=== PATIENT | female | born 1990 | race Caucasian/White ===

== ENCOUNTER 2017-04-01 03:42 | Emergency (ER) | payer BC ==
[~2017-04-01] VITALS: Ht 157.5 cm; Wt 70.3 kg
[~2017-04-01 03:42] MED LIST changes: -AVIANE PO; -BACTRIM DS TAB1 EACH PO; -HYDROCODON-ACE1 EAC5 PO; -LISINOPRIL PO
[2017-04-01 04:24] LABS: URINE SOURCE CLEAN CATCH
[2017-04-01 04:33] LABS: BASOPHIL% 0.3 % (0-2.5); EOSINOPHIL# 0.3 X10e3 (0-0.7); EOSINOPHIL% 1.9 % (0.0-7.0); HEMATOCRIT 39.1 % (35.0-45.0); HEMOGLOBIN 13.5 gm/dL (12.0-16.0); LYMPHOCYTE# 4.8 X10e3 (1.0-3.5); LYMPHOCYTE% 35.1 % (17.0-45.0); MEAN CELL VOLUME 80.8 FL (83-96); MEAN CORPUSCULAR HGB CONC 34.6 g/dL (30-36); MONOCYTE# 0.9 X10e3 (0-1.0); MONOCYTE% 6.7 % (3.0-12.0); NEUTROPHIL# 7.6 X10e3 (1.5-7.1); PLATELET COUNT 274 X10e3 (140-420); RED BLOOD COUNT 4.84 X10e (3.90-5.30); RED CELL DISTRIBUTION WIDTH 13.7 % (11.0-15.5); WHITE BLOOD COUNT 13.6 X10e3 (4.0-10.5)
[2017-04-01 04:34] LABS: DIFF IND NO
[2017-04-01 04:36] LABS: URINE APPEARANCE CLEAR; URINE BILIRUBIN NEG (NEG); URINE BLOOD NEG (NEG); URINE COLOR YELLOW; URINE GLUCOSE NEG (NEG); URINE KETONE NEG (NEG); URINE LEUKOCYTE ESTERASE 1+ (NEG); URINE NITRATE NEG (NEG); URINE PH 5.5 (5-8); URINE PROTEIN NEG (NEG); URINE SPECIFIC GRAVITY 1.018 (1.003-1.035)
[2017-04-01 04:38] LABS: CULTURE INDICATED? YES; URINE BACTERIA AUWI 2+ (NEGATIVE); URINE SQUAMOUS EPITHELIAL CELL OCC /[HPF]
[2017-04-01 05:01] LABS: BILIRUBIN, DIRECT 0.1 mg/dL (0.0-0.2); BILIRUBIN,INDIRECT 0.3 mg/dL (0.0-0.9); BILIRUBIN,TOTAL 0.4 mg/dL (0.2-2.0); BUN/CREATININE RATIO 21.11; CALCIUM SERUM 8.9 mg/dL (8.4-10.2); CREATININE SERUM 0.9 mg/dL (0.6-1.4); GLOM FILT RATE Estimated 87.1 mL/min (>60); POTASSIUM 3.9 mmol/L (3.5-5.1); PROTEIN TOTAL SERUM 7.4 g/dL (6.0-8.3)
[2017-04-01] MEDS ORDERED: BACTRIM DS TAB1 EACH PO (06:47)
[2017-04-02] MEDS ORDERED: LISINOPRIL PO (09:32)
[2017-04-02] MEDS ORDERED: AVIANE PO (12:19)
== END 2017-04-01 06:47 | disposition home or self-care (01) ==
LOC: CED 03:42
PROVIDERS: Nurse Practitioner
DX: K80.50 Calculus of bile duct without cholangitis or cholecystitis without obstruction (principal); N39.0 Urinary tract infection, site not specified; I10 Essential (primary) hypertension; Z79.899 Other long term (current) drug therapy
CPT/HCPCS: 36415; 80048; 80076; 81003; 82150; 83690; 84703; 85025; 87086; 96361; 96374; 96375; 99284; J1885; J2270; J2405

== ENCOUNTER → 2017-04-01 | Outpatient (CLI) | payer BC ==
[~2017-04-01] MED LIST: ALESSE-281 TAB PO; ALL DAY ALLERGY10 M3 PO; AMOXICILLIN875 MG PO; ANAPROX DS550 M1 PO; AVIANE PO; BACTRIM DS TAB1 EACH PO; BACTRIM DS TABL1 TA1 PO; BCP PO; BENADRYL PO; BIRTH CONTROL PILL PO; FLEXERIL10 M1 PO; HYDROCODON-ACE1 EAC5 PO; IBUPROFEN800 MG PO; LISINOPRIL PO; LISINOPRIL10 MG PO; NO MEDICATIONS; ORUDIS75 M1 DOB; PHENERGAN VC W120 M1 PO; TOPAMAX25 MG PO; VICODIN 5/1 TAB 5/50 PO; VOLTAREN50 MG PO; ZOFRAN PO
--- NOTE | ~2017-04-01 | NM22 ---
[facility] A Service of [facility] RADIOLOGY TEXT RESULTS PATIENT: BRET PONCE LOCATION: [facility] : 86 UNIT #: [id number] AGE: [address]: Cooper Alvarado MD SEX: F ORDER DR: [id number] [place], [place] [address] [id number] O MR#: [id number] Acc #: [id number] NAME: BRET PONCE : 1990 SEX: F STUDY DATE/TIME: 04/01/2017 12:16 UNIT: [facility] ROOM: STUDY DESCRIPTION: [facility]atob[facility] Attending Physician: Cooper Alvarado M.D. Referring Physician: Cooper Alvarado M.D. Ordering Physician: Cooper Alvarado M.D. Primary Care Physician: Primary Care Physician No MEDICAL IMAGING REPORT This report is preliminary unless electronic signature is present EXAM Hepatobiliary scan INDICATION Right upper quadrant abdominal pain since July 2016 PROCEDURE Patient administered 5.4 mCi technetium labeled Choletec, imaging of the upper abdomen was performed for 60 minutes then the patient was administered 1.4 mcg of Kinevac IV per protocol. COMPARISON None. FINDINGS The liver shows symmetric extraction and excretion of radiotracer. The gallbladder fills by 30 minutes. Ejection fraction is 25% at 30 minutes. IMPRESSION 1. No evidence for cystic duct obstruction. 2. Delayed gallbladder ejection fraction of 25% of 30 minutes suggesting gallbladder dysfunction. Dictated by... Levi Prather M.D. THIS IS AN ELECTRONICALLY VERIFIED REPORT Levi Prather M.D. at 04/02/2017 12:11 PM EED/tonie TD: 04/02/2017 03:28 [facility] A Service of [facility] RADIOLOGY TEXT RESULTS PATIENT: BRET PONCE LOCATION: [facility] : 86 UNIT #: [id number] AGE: [address]: Cooper Alvarado MD SEX: F ORDER DR: JOB #: [id number] MEDICAL IMAGING REPORT Page 1 of 1 COPY
== END | disposition home or self-care (01) ==
LOC: CNUC 07:24
DX: R10.9 Unspecified abdominal pain (principal); R94.5 Abnormal results of liver function studies
CPT/HCPCS: 78227; A9537; J2805

== ENCOUNTER 2017-04-02 04:04 | Inpatient (IN) | payer BC ==
[~2017-04-02] VITALS: Ht 160 cm; Wt 70.3 kg
--- NOTE | ~2017-04-02 | CO ---
Unit #: [id number] #: [id number] Patient: BRET PONCE [id number] [address] [place], [place] [address] [id number] I MR#: [id number] NAME: BRET PONCE ROOM: 468 Age: 26 Sex: F Admission Date: 04/02/2017 : 1990 Attending Physician: Ridge Andino Jr., M.D. Primary Care Physician: Primary Care Physician No Consultation Date: 04/02/2017 CONSULTATION REPORT BRIEF HISTORY The patient is a 26-year-old lady with recurrent right upper quadrant abdominal pain since delivery about 5 months ago. Recent workup consists of CCK HIDA scan, which shows depressed ejection fraction with reproduction of her symptoms. She presents to the emergency room with persistent right upper quadrant pain radiating to her shoulder. PAST MEDICAL HISTORY She has had a section. She does have a history of hypertension. MEDICATIONS Lisinopril. SOCIAL HISTORY No smoking. Does drink occasionally. FAMILY HISTORY Negative for GI malignancy. REVIEW OF SYSTEMS No cardiopulmonary complaints at this time. Else, 10 systems reviewed and negative. PHYSICAL EXAMINATION GENERAL: She is awake, alert, appropriate, currently afebrile. HEENT: Unremarkable. NECK: Supple. No JVD. Trachea midline. LUNGS: Clear to auscultation. Bilateral breath sounds symmetric. CARDIOVASCULAR: Regular rate and rhythm. ABDOMEN: Soft. It is mildly tender in the right upper quadrant. No rebound. No masses palpable. No hepatosplenomegaly. EXTREMITIES: No clubbing, cyanosis, or edema. DIAGNOSTIC STUDIES LABORATORY RESULTS: White count of 12.8. Chemistries are normal. ASSESSMENT Chronic cholecystitis. PLAN I would recommend IV fluids and antibiotics, and will plan for laparoscopic cholecystectomy. Discussed risks and benefits. All questions answered. Unit #: [id number] #: [id number] Patient: BRET PONCE Dictated by... Kenji Ann/magno TD: 04/02/2017 14:26 JOB #: [id number] CONSULTATION REPORT Page 1 of 1 X Jae Ellis MD CONSULTATION REPORT
--- NOTE | ~2017-04-02 | OR ---
Unit #: [id number] #: [id number] Patient: BRET PONCE [id number] [address] [place], [place] [address] [id number] I MR#: [id number] NAME: BRET PONCE ROOM: 468 Date of Procedure: 04/03/2017 Admission Date: 04/02/2017 Surgeon: Ridge Andino Jr., M.D. : 1990 Attending Physician: Ridge Andino Jr., M.D. Primary Care Physician: Primary Care Physician No OPERATIVE REPORT INDICATIONS FOR PROCEDURE The patient is a 26-year-old white female, who has been having intermittent symptoms, mid epigastric abdominal pain which is severe at times with biliary colic like symptoms. She had an ultrasound which revealed no obvious stones, but CCK HIDA scan which revealed poorly reymundo gallbladder with reproduction of her symptoms. She is brought to the operating room at this time for laparoscopic cholecystectomy. She understands the procedure including the risks, including that of common duct injury, biliary leak, and bleeding, and intra-abdominal organ injury, and consents. PREOPERATIVE DIAGNOSIS Cholecystitis. POSTOPERATIVE DIAGNOSIS Subacute cholecystitis with left ovarian cyst. ANESTHESIA General with endotracheal intubation 0.5% Marcaine with epinephrine locally. PROCEDURE PERFORMED Laparoscopic cholecystectomy. DESCRIPTION OF PROCEDURE The patient was positioned in supine position. After being anesthetized and intubated, she was prepped and draped in routine fashion for laparoscopic cholecystectomy. A small supraumbilical incision was made approximately a centimeter in length. This was carried down to the subcutaneous tissue down to the fascia and the fascia was lifted between 2 Robert clamps and Veress needle introduced into the abdomen. The abdomen was then inflated with CO2 gas. A 5-mm port was introduced into the abdomen followed by the camera. There was no evidence of any injury related to introduction of the port of the Veress needle. Brief intra-abdominal exploration was carried out. The patient was noted to have a moderate-sized cyst on the left ovary which was diagnosed preoperatively by scan, also evidence of a chronic inflamed gallbladder. Two 5-mm ports were placed laterally and 11-mm port just to the right of the upper midline. The gallbladder was lifted. Dissection was carried out in the triangle of Calot. There were some omental adhesions that were lysed initially with hook scissors before mobilizing the gallbladder. After the gallbladder was mobilized down on the area of the triangle of Unit #: [id number] #: [id number] Patient: BRET PONCE, dissection was carried out in the triangle of Calot. The common duct appeared normal. Cystic duct was normal in size. It was isolated, hemoclipped x4 and divided approximately a centimeter from its junction with the common duct. Cystic artery was identified, hemoclipped x3, and divided. The gallbladder was then removed from its bed with the hook cautery using a current of 20 and after it was released, it was placed in EndoCatch bag and brought out through the larger port site. The port site had to be extended approximately 0.5 cm because of this large firm dilated gallbladder. After the gallbladder was removed, the port was replaced. Subhepatic space checked. There was no evidence of any bleeding from the gallbladder bed. The clips on cystic duct and cystic artery were intact with no evidence of any leak or bleeding. The CO2 was expressed from the abdomen. The ports were removed. There was no evidence of any bleeding from the port sites. The fascia in the larger port site was approximated with a [id number] 0 Vicryl suture x2. The wounds were irrigated and after hemostasis was achieved with Bovie cautery, they were injected with 0.5% Marcaine with epinephrine and the skin edges were approximated with stainless-steel skin clips and skin stapling device. Sterile dressings were applied externally. Estimated blood loss less than 50 mL. The patient received less than 2000 mL crystalloid solution during the procedure. Sponges and instruments counts were correct x3. No drains were used. No complications. The patient was taken to the recovery room with stable vital signs in satisfactory condition. Dictated by... Ridge Andino Jr., M.D. JMB/magno TD: 04/03/2017 16:26 JOB #: [id number] OPERATIVE REPORT Page 1 of 1 X Ridge Andino MD X PROCEDURE OPERATIVE NOTE
--- NOTE | ~2017-04-02 | DS ---
Unit #: [id number] #: [id number] Patient: BRET PONCE [id number] [address] [place], [place] [address] [id number] I MR#: [id number] NAME: BRET PONCE ROOM: 468 Age: 26 Sex: F Admission Date: 04/02/2017 : 1990 Discharge Date: 04/04/2017 Attending Physician: Ridge Andino Jr., M.D. Primary Care Physician: Primary Care Physician No DISCHARGE SUMMARY ADMITTING AND FINAL DIAGNOSIS Subacute and chronic cholecystitis. OPERATIONS ON THIS ADMISSION Laparoscopic cholecystectomy on 04/03/2017. BRIEF SUMMARY The patient is a 26-year-old white female, who was recently seen in the office by Dr. Alvarado for mid epigastric and right upper quadrant abdominal pain. Extensive workup had been performed. Ultrasound revealed no stones, but CCK HIDA scan revealed only 28% contraction of the gallbladder with reproduction of her symptoms. She presented to the emergency room complaining of severe pain and white blood cell count was mildly elevated at 12,800 and normal liver function tests. On physical examination, she was noted to have localized tenderness in the right upper quadrant. HOSPITAL COURSE The patient was admitted and started on IV antibiotics, and subsequently taken to the operating room and underwent laparoscopic cholecystectomy. She was noted to have evidence of subacute cholecystitis. Postop, she has less than 24 hours postop ambulating well, tolerating a diet. No nausea. No vomiting. She has had some slight urinary hesitancy, but is voiding okay. White blood cell count is 13,400, felt to be related to her surgery; hemoglobin 12.1. The plan will be to discharge the patient home in satisfactory condition. She will be keeping her wounds clean and dry, be on a regular home diet, on [place] 10 mg/325 one or two p.o. q.4 to 6h p.r.n. pain. She will be resume her home medications. Calling the office for a followup appointment in one week. Dictated by... Ridge Andino Jr., M.D. JMB/magno TD: 04/05/2017 14:13 JOB #: [id number] Unit #: [id number] #: [id number] Patient: BRET PONCE DISCHARGE SUMMARY Page 1 of 1 X Ridge Andino MD X DISCHARGE SUMMARY
[~2017-04-02 04:04] MED LIST changes: +BACTRIM DS TAB1 EACH PO
[2017-04-02 06:12] LABS: BASOPHIL% 0.3 % (0-2.5); EOSINOPHIL# 0.2 X10e3 (0-0.7); EOSINOPHIL% 1.6 % (0.0-7.0); HEMATOCRIT 40.6 % (35.0-45.0); HEMOGLOBIN 13.8 gm/dL (12.0-16.0); LYMPHOCYTE# 3.7 X10e3 (1.0-3.5); LYMPHOCYTE% 29.1 % (17.0-45.0); MEAN CELL VOLUME 81.2 FL (83-96); MEAN CORPUSCULAR HEMOGLOBIN 27.7 PG (28-34); MEAN CORPUSCULAR HGB CONC 34.1 g/dL (30-36); MEAN PLATELET VOLUME 7.7 FL (6.5-11.5); MONOCYTE# 0.7 X10e3 (0-1.0); MONOCYTE% 5.7 % (3.0-12.0); NEUTROPHIL# 8.1 X10e3 (1.5-7.1); NEUTROPHIL% 63.3 % (40-75); PLATELET COUNT 306 X10e3 (140-420); RED CELL DISTRIBUTION WIDTH 13.6 % (11.0-15.5); WHITE BLOOD COUNT 12.8 X10e3 (4.0-10.5)
[2017-04-02 06:14] LABS: DIFF IND NO
[2017-04-02 06:16] LABS: URINE APPEARANCE CLEAR; URINE BILIRUBIN NEG (NEG); URINE BLOOD NEG (NEG); URINE COLOR YELLOW; URINE GLUCOSE NEG (NEG); URINE KETONE NEG (NEG); URINE LEUKOCYTE ESTERASE 1+ (NEG); URINE NITRATE NEG (NEG); URINE PH 5.5 (5-8); URINE PROTEIN NEG (NEG); URINE SPECIFIC GRAVITY 1.029 (1.003-1.035); URINE UROBILINOGEN 0.2 MG/DL (NEG)
[2017-04-02 06:18] LABS: CULTURE INDICATED? YES; URINE BACTERIA AUWI 2+ (NEGATIVE); URINE SQUAMOUS EPITHELIAL CELL FEW /[HPF]
[2017-04-02 06:42] LABS: ALBUMIN SERUM 4.2 g/dL (3.5-5.0); ALKALINE PHOSPHATASE 81 U/L (32-92); ALT (SGPT) 22 U/L (10-40); AMYLASE 28 U/L (0-46); AST (SGOT) 16 U/L (10-42); BILIRUBIN,TOTAL 0.2 mg/dL (0.2-2.0); BLOOD UREA NITROGEN 18 mg/dL (9-23); CALCIUM SERUM 9.1 mg/dL (8.4-10.2); CARBON DIOXIDE 22 mmol/L (22-31); CHLORIDE 105 mmol/L (100-111); CREATININE SERUM 0.8 mg/dL (0.6-1.4); GLOM FILT RATE Estimated 100.4 mL/min (>60); GLUCOSE FASTING 110 mg/dL (70-110); LIPASE 21 U/L (22-51); POTASSIUM 3.5 mmol/L (3.5-5.1); SODIUM 135 mmol/L (135-145)
[2017-04-02 06:44] LABS: BILIRUBIN, DIRECT <0.1 mg/dL (0.0-0.2); BILIRUBIN,INDIRECT 0.1 mg/dL (0.0-0.9)
[2017-04-02] MEDS ORDERED: LISINOPRIL PO (09:32)
[2017-04-02] MEDS ORDERED: AVIANE PO (12:19)
[2017-04-04 02:51] LABS: BASOPHIL# 0.1 X10e3 (0-0.3); BASOPHIL% 0.5 % (0-2.5); DIFF IND NO; EOSINOPHIL# 0.2 X10e3 (0-0.7); EOSINOPHIL% 1.4 % (0.0-7.0); HEMATOCRIT 35.5 % (35.0-45.0); HEMOGLOBIN 12.1 gm/dL (12.0-16.0); LYMPHOCYTE# 3.7 X10e3 (1.0-3.5); LYMPHOCYTE% 27.6 % (17.0-45.0); MEAN CELL VOLUME 81.2 FL (83-96); MEAN CORPUSCULAR HEMOGLOBIN 27.8 PG (28-34); MEAN CORPUSCULAR HGB CONC 34.2 g/dL (30-36); MONOCYTE% 7.4 % (3.0-12.0); NEUTROPHIL# 8.4 X10e3 (1.5-7.1); NEUTROPHIL% 63.1 % (40-75); PLATELET COUNT 259 X10e3 (140-420); RED BLOOD COUNT 4.37 X10e (3.90-5.30); RED CELL DISTRIBUTION WIDTH 13.4 % (11.0-15.5); WHITE BLOOD COUNT 13.4 X10e3 (4.0-10.5)
[2017-04-04 03:09] LABS: ALBUMIN SERUM 3.3 g/dL (3.5-5.0); BILIRUBIN,TOTAL 0.5 mg/dL (0.2-2.0); CALCIUM SERUM 8.3 mg/dL (8.4-10.2); CREATININE SERUM 0.9 mg/dL (0.6-1.4); GLOM FILT RATE Estimated 87.1 mL/min (>60); POTASSIUM 3.6 mmol/L (3.5-5.1); PROTEIN TOTAL SERUM 6.5 g/dL (6.0-8.3)
[2017-04-04] MEDS ORDERED: HYDROCODON-ACE1 EAC5 PO (08:56)
== END 2017-04-04 11:15 | disposition home or self-care (01) | DRG 419 ==
LOC: CED 04:04 → CEDOF 07:10 → CED 07:10 → CEDOF 08:57 → C4C 20:04 → CED 04-03 10:15 → CEDOF 04-03 10:15 → C4C 04-03 10:15
PROVIDERS: Nurse Practitioner Family; Surgery
PROC: 0FT44ZZ Resection of Gallbladder, Percutaneous Endoscopic Approach (ICD-10-PCS; principal; 2017-04-03 09:00)
DX: K81.0 Acute cholecystitis (principal); I10 Essential (primary) hypertension; N83.202 Unspecified ovarian cyst, left side
CPT/HCPCS: 36415; 80048; 80053; 80076; 81003; 82150; 83690; 85025; 87086; 88304; 94010; 96361; 96374; 99285; J0330; J1650; J1885; J2250; J2270; J2405; J2550; J2710; J3010